=== PATIENT | male | born 1955 | race African-American/Black ===

== ENCOUNTER 2022-04-16 04:16 | Day surgery (SDC) | payer OTHER ==
[2022-04-13 15:42] VITALS: BMI 23.0
[2022-04-16] MEDS ORDERED: HEPARIN NA (PORCINE) 5,000 UNITS/ML 1ML VIAL ONE (13:29)
[2022-04-16] MEDS ORDERED: LIDOCAINE HCL 1%, 10 MG/ML (20ML VIAL) ONE (13:29)
[2022-04-16] MEDS ORDERED: ceFAZolin SODIUM 1 GM VIAL IVPB ONE (15:35)
[2022-04-16] MEDS ORDERED: MIDAZOLAM HCL 2 MG/2 ML SINGLE DOSE VIAL ONE (15:37)
[2022-04-16] MEDS ORDERED: HEPARIN NA (PORCINE) 5,000 UNITS/ML 1ML VIAL SQ ONE (15:44)
[2022-04-16] MEDS ORDERED: LIDOCAINE HCL 1%, 10 MG/ML (50 mL VIAL) SQ ONE (16:06)
[2022-04-16] MEDS ORDERED: PROTAMINE SULFATE 50 MG/5 ML VIAL ONE ×2 (16:23→16:24)
[2022-04-16] MEDS ORDERED: PROPOFOL 20 ML ONE (18:13)
[2022-04-16 19:05] VITALS: BP 135/55; PULSE 45; TEMP 97.2
== END 2022-04-16 18:30 | disposition home or self-care (01) ==
LOC: JASU-SURG 04:16
PROVIDERS: ATTEND Surgery Vascular Surgery
PROC: B41DYZZ Fluoroscopy of Aorta and Bilateral Lower Extremity Arteries using Other Contrast (ICD-10-PCS; principal; 2022-04-16 15:00)
DX: I70.213 Atherosclerosis of native arteries of extremities with intermittent claudication, bilateral legs (principal); I77.1 Stricture of artery; Z21 Asymptomatic human immunodeficiency virus [HIV] infection status
CPT/HCPCS: 75716-TC-FY; 76000-TC-FY; 94760; J1644

== ENCOUNTER 2022-04-23 04:09 | Day surgery (SDC) | payer OTHER ==
[2022-04-22 11:08] VITALS: BMI 23.0
[2022-04-23] MEDS ORDERED: HEPARIN NA (PORCINE) 5,000 UNITS/ML 1ML VIAL ONE ×2 (07:22→09:28)
[2022-04-23] MEDS ORDERED: LIDOCAINE HCL 1%, 10 MG/ML (20ML VIAL) ONE (07:22)
[2022-04-23] MEDS ORDERED: MIDAZOLAM HCL 2 MG/2 ML SINGLE DOSE VIAL ONE ×2 (07:26→09:07)
[2022-04-23] MEDS ORDERED: PROPOFOL 20 ML ONE ×2 (07:26→09:15)
[2022-04-23] MEDS ORDERED: ceFAZolin SODIUM 1 GM VIAL ONE (08:36)
[2022-04-23] MEDS ORDERED: ceFAZolin SODIUM 1 GM VIAL IVPB ONE (08:37)
[2022-04-23] MEDS ORDERED: LIDOCAINE HCL 1%, 10 MG/ML (20ML VIAL) INF ONE (08:40)
[2022-04-23] MEDS ORDERED: oxyCODONE HCL 5 MG TABLET PO PRN ×2 (10:58)
[2022-04-23] MEDS ORDERED: ONDANSETRON 4 MG/2 ML VIAL IVPUSH PRN (10:58)
[2022-04-23] MEDS ORDERED: LACTATED RINGERS SOLUTION 1,000 ML IV SCH (11:00)
[2022-04-23 12:15] VITALS: BP 120/54; PULSE 60; TEMP 97.7
== END 2022-04-23 12:10 | disposition home or self-care (01) ==
LOC: JASU-SURG 04:09
PROVIDERS: ATTEND Surgery Vascular Surgery
PROC: B44FZZ3 Ultrasonography of Right Lower Extremity Arteries, Intravascular (ICD-10-PCS; principal; 2022-04-23 08:00)
DX: I70.211 Atherosclerosis of native arteries of extremities with intermittent claudication, right leg (principal)
CPT/HCPCS: 76000-TC-FY; 94760; J1644

== ENCOUNTER 2022-07-23 04:15 | Day surgery (SDC) | payer OTHER ==
[2022-07-22 10:31] VITALS: BMI 22.4
[~2022-07-23 04:15] MED LIST: LIDOCAINE HCL 1%, 10 MG/ML (20ML VIAL) INF ONE
[2022-07-23] MEDS ORDERED: LIDOCAINE HCL 1%, 10 MG/ML (20ML VIAL) ONE (08:08)
[2022-07-23] MEDS ORDERED: HEPARIN NA (PORCINE) 5,000 UNITS/ML 1ML VIAL ONE (08:08)
[2022-07-23] MEDS ORDERED: PROPOFOL 20 ML ONE ×3 (09:15→10:19)
[2022-07-23] MEDS ORDERED: MIDAZOLAM HCL 2 MG/2 ML SINGLE DOSE VIAL ONE (09:15)
[2022-07-23] MEDS ORDERED: ceFAZolin SODIUM 1 GM VIAL IVPB ONE (09:45)
[2022-07-23] MEDS ORDERED: ceFAZolin SODIUM 1 GM VIAL ONE (09:45)
[2022-07-23] MEDS ORDERED: LIDOCAINE HCL 1%, 10 MG/ML (20ML VIAL) INF ONE ×2 (09:55)
[2022-07-23] MEDS ORDERED: CLOPIDOGREL BISULFATE 75 MG TABLET (FP) PO ONE (11:01)
[2022-07-23] MEDS ORDERED: ONDANSETRON 4 MG/2 ML VIAL IVPUSH PRN (11:06)
[2022-07-23] MEDS ORDERED: oxyCODONE HCL 5 MG TABLET PO PRN ×2 (11:06)
[2022-07-23] MEDS ORDERED: PROMETHAZINE HCL 25 MG/1 ML VIAL IVPUSH PRN (11:06)
[2022-07-23] MEDS ORDERED: LACTATED RINGERS SOLUTION 1,000 ML IV SCH (11:15)
[2022-07-23] MEDS ORDERED: CLOPIDOGREL BISULFATE 75 MG TABLET (FP) ONE (11:35)
[2022-07-23 12:24] VITALS: TEMP 97.9
[2022-07-23 13:00] VITALS: RESP 16
[2022-07-23 14:10] VITALS: BP 130/60; PULSE 60
== END 2022-07-23 13:50 | disposition home or self-care (01) ==
LOC: JASU-SURG 04:15
PROVIDERS: ATTEND Surgery Vascular Surgery
PROC: 047L3D1 Dilation of Left Femoral Artery with Intraluminal Device, using Drug-Coated Balloon, Percutaneous Approach (ICD-10-PCS; principal; 2022-07-23 09:00)
DX: I70.212 Atherosclerosis of native arteries of extremities with intermittent claudication, left leg (principal)
CPT/HCPCS: 37227; C1877; C2623; 76000-TC-FY; 94760; C1876; J1644